=== PATIENT | female | born 1980 | race Caucasian/White ===

== ENCOUNTER 2019-08-18 11:31 | Emergency (ER) | payer BC, OTHER ==
[2019-08-18] MEDS ORDERED: dexAMETHasone 10 MG/ML VIAL ONE (11:59)
[2019-08-18] MEDS ORDERED: METOCLOPRAMIDE 10 MG/2mL INJ ONE (11:59)
[2019-08-18] MEDS ORDERED: NA CHLORIDE 0.9% 1,000 ML ONE (11:59)
[2019-08-18] MEDS ORDERED: DIPHENHYDRAMINE 50 MG/ML VIAL ONE (11:59)
--- NOTE | 2019-08-18 12:10 | RAD REPORT ---
EXAM DESCRIPTION: CT - Head Brain Wo Cont - 08/18/2019 12:01 pm CLINICAL HISTORY: HEADACHE Headache, drowsiness COMPARISON: No comparisons TECHNIQUE: All CT scans are performed using dose optimization technique as appropriate and may inclu de automated exposure control or mA/KV adjustment according to patient size. FINDINGS: No intracranial hemorrhage, hydrocephalus or extra-axial fluid collection.No areas of brai n edema or evidence of midline shift. The paranasal sinuses and mastoids are clear. The calvarium is intact. IMPRESSION: No acute intracranial abnormality.
[2019-08-18] MEDS ORDERED: KETOROLAC 30 MG/ML INJ ONE (12:22)
--- NOTE | 2019-08-18 12:54 | EDPHYS ---
Physician Documentation [facility] Name: Fanny Null Age: 39 yrs Sex: Female : 1980 Arrival Date: 08/18/2019 Time: 11:35 Bed 8 Private MD: Roni Menendez V ED Physician Arturo Larry HPI: 08/18 12:00 This 39 yrs old Female presents to ER via Ambulatory with complaints of kb Headache, High Blood Pressure. 12:00 The patient complains of pain to the forehead. The patient describes the headache as kb constant, throbbing. Onset: The symptoms/episode began/occurred this morning. Associated signs and symptoms: Pertinent positives: nausea. Severity of symptoms: At its worst the pain was moderate, severe, in the emergency department the pain is unchanged. Headache History: The patient has had previous headaches and this one is different than previous episodes. The symptoms are alleviated by nothing. the symptoms are aggravated by nothing. The patient has experienced a previous episode. The patient has been recently seen by a physician: the patient's primary care provider, earlier today, with similar presenting complaints. Pt reports she has had a headache since this morning, went to Dr Menendez and was prescribed some medications, but was told to come here for a CT scan. States she had a headache just like this a couple of weeks ago and started checking her BP at that time. States it has been high all week. Historical: - Allergies: 11:41 PENICILLINS; hb - Immunization history:: Adult Immunizations up to date. - Social history:: Smoking status: Patient/guardian denies using tobacco. - Ebola Screening: : Patient denies exposure to infectious person Patient denies travel to an Ebola-affected area in the 21 days before illness onset. ROS: 11:53 Constitutional: Negative for fever, chills, and weight loss, Eyes: Negative for injury, kb pain, redness, and discharge, ENT: Negative for injury, pain, and discharge, Neck: Negative for injury, pain, and swelling, Cardiovascular: Negative for chest pain, palpitations, and edema, Respiratory: Negative for shortness of breath, cough, wheezing, and pleuritic chest pain, Back: Negative for injury and pain, : Negative for injury, bleeding, discharge, and swelling, MS/Extremity: Negative for injury and deformity, Skin: Negative for injury, rash, and discoloration. 12:00 Abdomen/GI: Positive for nausea. kb 12:00 Neuro: Positive for headache. Exam: 11:52 Head/Face: Normocephalic, atraumatic. Eyes: Pupils equal round and reactive to light, kb extra-ocular motions intact. Lids and lashes normal. Conjunctiva and sclera are non-icteric and not injected. Cornea within normal limits. Periorbital areas with no swelling, redness, or edema. ENT: Nares patent. No nasal discharge, no septal abnormalities noted. Tympanic membranes are normal and external auditory canals are clear. Oropharynx with no redness, swelling, or masses, exudates, or evidence of obstruction, uvula midline. Mucous membranes moist. Neck: Trachea midline, no thyromegaly or masses palpated, and no cervical lymphadenopathy. Supple, full range of motion without nuchal rigidity, or vertebral point tenderness. No Meningismus. Chest/axilla: Normal chest wall appearance and motion. Nontender with no deformity. No lesions are appreciated. Cardiovascular: Regular rate and rhythm with a normal S1 and S2. No gallops, murmurs, or rubs. Normal PMI, no JVD. No pulse deficits. Respiratory: Lungs have equal breath sounds bilaterally, clear to auscultation and percussion. No rales, rhonchi or wheezes noted. No increased work of breathing, no retractions or nasal flaring. Abdomen/GI: Soft, non-tender, with normal bowel sounds. No distension or tympany. No guarding or rebound. No evidence of tenderness throughout. Back: No spinal tenderness. No costovertebral tenderness. Full range of motion. Skin: Warm, dry with normal turgor. Normal color with no rashes, no lesions, and no evidence of cellulitis. MS/ Extremity: Pulses equal, no cyanosis. Neurovascular intact. Full, normal range of motion. Neuro: Awake and alert, GCS 15, oriented to person, place, time, and situation. Cranial nerves II-XII grossly intact. Motor strength 5/5 in all extremities. Sensory grossly intact. Cerebellar exam normal. Normal gait. 11:52 Constitutional: The patient appears alert, awake, uncomfortable. Vital Signs: 11:41 BP 140 / 108; Pulse 88; Resp 16; Temp 97.9; Pulse Ox 100% on R/A; Pain 8/10; hb [place] Coma Score: 12:52 Eye Response: spontaneous(4). Verbal Response: oriented(5). Motor Response: obeys kb commands(6). Total: 15. MDM: 11:43 Patient medically screened. kb 11:52 Data reviewed: vital signs, nurses notes. Data interpreted: Pulse oximetry: on room air kb is 100 %. Interpretation: normal. 12:52 Counseling: I had a detailed discussion with the patient and/or guardian regarding: the kb historical points, exam findings, and any diagnostic results supporting the discharge/admit diagnosis, radiology results, the need for outpatient follow up, a family practitioner, to return to the emergency department if symptoms worsen or persist or if there are any questions or concerns that arise at home. 08/18 11:48 Order name: CT Head Brain wo Cont; Complete Time: 12:15 kb 08/18 11:50 Order name: IV Start; Complete Time: 11:56 kb Administered Medications: 11:54 Not Given (Physician Discretion): Benadryl 12.5 mg IVP once kb 12:06 Drug: NS 0.9% 1000 ml Route: IV; Rate: 1000 ml; Site: right antecubital; ss 13:13 Follow up: IV Status: Completed infusion; IV Intake: 1000ml ss 12:08 Drug: Benadryl 12.5 mg Route: IVP; Site: right antecubital; ss 13:12 Follow up: Response: No adverse reaction; Marked relief of symptoms; Pain is decreased ss 12:13 Drug: Decadron - Dexamethasone 10 mg Route: IVP; Site: right antecubital; ss 13:13 Follow up: Response: No adverse reaction; Marked relief of symptoms; Pain is decreased ss 12:15 Drug: Reglan 10 mg Route: IVP; Site: right antecubital; ss 13:13 Follow up: Response: No adverse reaction; Marked relief of symptoms; Pain is decreased ss 12:26 Drug: TORadol - Ketorolac 15 mg Route: IVP; Site: right antecubital; ss 13:13 Follow up: Response: No adverse reaction; Pain is decreased ss Disposition: 13:27 Co-signature as Attending Physician, Arturo Larry MD. rn Disposition: 08/18/19 12:53 Discharged to Home. Impression: Headache. - Condition is Stable. - Discharge Instructions: General Headache Without Cause, [id number]. - Medication Reconciliation Form, Thank You Letter, Antibiotic Education, Prescription Opioid Use form. - Follow up: Emergency Department; When: As needed; Reason: Worsening of condition. Follow up: Private Physician; When: 2 - 3 days; Reason: Recheck today's complaints, Continuance of care, Re-evaluation by your physician. Signatures: Dispatcher [employer] EDMS Torie Worthington, PARKING LOT SIGNALER-C PARKING LOT SIGNALER-CkArturo Salvador MD MD rn Paige Farias RN RN ss Shalonda Cordova RN RN Corrections: (The following items were deleted from the chart) 12:00 11:53 Constitutional: Negative for fever, chills, and weight loss, kb 13:13 12:53 08/18/2019 12:53 Discharged to Home. Impression: Headache. Condition is Stable. ss Forms are Medication Reconciliation Form, Thank You Letter, Antibiotic Education, Prescription Opioid Use. Follow up: Emergency Department; When: As needed; Reason: Worsening of condition. Follow up: Private Physician; When: 2 - 3 days; Reason: Recheck today's complaints, Continuance of care, Re-evaluation by your physician. kb
--- NOTE | 2019-08-18 12:54 | ER ---
Nurse's Notes [facility] Name: Fanny Null Age: 39 yrs Sex: Female : 1980 Arrival Date: 08/18/2019 Time: 11:35 Bed 8 Private MD: Roni Menendez V Diagnosis: Headache Presentation: 08/18 11:36 Presenting complaint: Headache, nausea, and chills since this morning. Seen by Dr. maría elena Menendez for same s/s this morning, given prescription for bisoprolol/HCTZ and Fioricet. Transition of care: patient was not received from another setting of care. Onset of symptoms was August 18, 2019. Risk Assessment: Do you want to hurt yourself or someone else? Patient reports no desire to harm self or others. Initial Sepsis Screen: Does the patient meet any 2 criteria? No. Patient's initial sepsis screen is negative. Does the patient have a suspected source of infection? No. Patient's initial sepsis screen is negative. Care prior to arrival: None. 11:36 Method Of Arrival: Ambulatory 11:36 Acuity: ELIE 3 hb Historical: - Allergies: 11:41 PENICILLINS; hb - Immunization history:: Adult Immunizations up to date. - Social history:: Smoking status: Patient/guardian denies using tobacco. - Ebola Screening: : Patient denies exposure to infectious person Patient denies travel to an Ebola-affected area in the 21 days before illness onset. Screenin:15 Abuse screen: Denies threats or abuse. Denies injuries from another. Nutritional ss screening: No deficits noted. Tuberculosis screening: Never had TB. Fall Risk None identified. Assessment: 11:51 Reassessment: orders to hold medication until CT scan results are back for patient sg safety from XIANG Rodriguez EQUINE MANAGER, pt stated understanding. 11:55 Reassessment: Patient appears in no apparent distress at this time. orders Toradol to sg hold until CT scan is complete and results are reported. 12:15 General: Appears uncomfortable, Behavior is calm, cooperative, quiet, Denies fever, ss feeling ill, fatigue, chills. Pain: Complains of pain in forehead Pain currently is 8 out of 10 on a pain scale. Quality of pain is described as aching, tender, Pain began "this morning" Is continuous. Neuro: Level of Consciousness is awake, alert, obeys commands, Oriented to person, place, time, situation. Cardiovascular: Capillary refill < 3 seconds is brisk in bilateral fingers. Respiratory: Airway is patent Respiratory effort is even, unlabored, Respiratory pattern is regular, symmetrical. GI: Patient currently denies abdominal pain, diarrhea, nausea, vomiting. : No signs and/or symptoms were reported regarding the genitourinary system. EENT: Nares are clear Oral mucosa is moist. Derm: Skin is intact, is healthy with good turgor, Skin is dry, Skin is pink, warm \\T\\ dry. normal. Musculoskeletal: Circulation, motion, and sensation intact. Range of motion: intact in all extremities. 12:59 Reassessment: Patient appears in no apparent distress at this time. discharge delayed ss due to awaiting IVF to finish infusing. 13:12 Reassessment: Patient appears in no apparent distress at this time. Patient and/or ss family updated on plan of care and expected duration. Pain level reassessed. Patient is alert, oriented x 3, equal unlabored respirations, skin warm/dry/pink. Patient states feeling better. Patient states symptoms have improved. Pain: Pain currently is 3 out of 10 on a pain scale. Vital Signs: 11:41 BP 140 / 108; Pulse 88; Resp 16; Temp 97.9; Pulse Ox 100% on R/A; Pain 8/10; hb [place] Coma Score: 12:52 Eye Response: spontaneous(4). Verbal Response: oriented(5). Motor Response: obeys kb commands(6). Total: 15. ED Course: 11:35 Patient arrived in ED. mr 11:36 Roni Menendez MD is Private Physician. mr 11:40 Triage completed. hb 11:41 Arm band placed on. hb 11:43 [facility] Worthington [facility]-C [facility]. kb 11:43 Arturo Larry MD is Attending Physician. kb 11:55 Inserted saline lock: 22 gauge in right antecubital area, using aseptic technique. jb1 12:00 Paige Farias, MARYLOU is Primary Nurse. ss 12:01 CT Head Brain wo Cont In Process Unspecified. EDMS 12:15 Patient has correct armband on for positive identification. Bed in low position. Call ss light in reach. Side rails up X 1. 13:11 No provider procedures requiring assistance completed. IV discontinued, intact, ss bleeding controlled, No redness/swelling at site. Pressure dressing applied. Administered Medications: 11:54 Not Given (Physician Discretion): Benadryl 12.5 mg IVP once kb 12:06 Drug: NS 0.9% 1000 ml Route: IV; Rate: 1000 ml; Site: right antecubital; ss 13:13 Follow up: IV Status: Completed infusion; IV Intake: 1000ml ss 12:08 Drug: Benadryl 12.5 mg Route: IVP; Site: right antecubital; ss 13:12 Follow up: Response: No adverse reaction; Marked relief of symptoms; Pain is decreased ss 12:13 Drug: Decadron - Dexamethasone 10 mg Route: IVP; Site: right antecubital; ss 13:13 Follow up: Response: No adverse reaction; Marked relief of symptoms; Pain is decreased ss 12:15 Drug: Reglan 10 mg Route: IVP; Site: right antecubital; ss 13:13 Follow up: Response: No adverse reaction; Marked relief of symptoms; Pain is decreased ss 12:26 Drug: TORadol - Ketorolac 15 mg Route: IVP; Site: right antecubital; ss 13:13 Follow up: Response: No adverse reaction; Pain is decreased ss Intake: 13:13 IV: 1000ml; Total: 1000ml. ss Outcome: 12:53 Discharge ordered by . kb 13:11 Discharged to home ambulatory, with family. ss 13:11 Condition: good 13:11 Discharge instructions given to patient, Instructed on discharge instructions, follow up and referral plans. Demonstrated understanding of instructions, follow-up care. 13:13 Patient left the ED. ss Signatures: Dispatcher [employer] EDNM Kevin Nash Kristin, EQUINE MANAGER-C EQUINE MANAGER-CkCaden Reza RN RN MiramontesJoan santiago mr Paige Farias RN RN ss Shalonda Cordova RN RN hb
[2019-08-18 13:21] VITALS: BP 140/108; TEMP 97.9; O2SAT 100
== END 2019-08-18 13:13 | disposition home or self-care (01) ==
LOC: ER 11:31
DX: R51 Headache (principal); Z88.0 Allergy status to penicillin
CPT/HCPCS: 96361; 70450; 96375; 96374; 99283; J2765; J1100; J7030

== ENCOUNTER 2021-01-09 13:33 | Emergency (ER) | payer OTHER, SELFPAY ==
[2021-01-09] MEDS ORDERED: TETANUS & DIPHTHERIA TOX,ADULT 0.5 ML VIAL ONE (14:23)
[2021-01-09 14:38] LABS: Absolute Lymphocytes (CBC) 1.3 K/uL (0.7-4.9); Hematocrit 40.1 % (36.0-45.0); Lymphocytes % 32.9 % (15.3-44.8); MPV 7.1 fL (7.6-11.3); RBC Red Blood Cell Count 4.39 M/uL (3.86-4.86)
[2021-01-09 14:57] LABS: ALT/SGPT 82 U/L (12-78); AST/SGOT 48 U/L (15-37); Albumin 3.9 g/dL (3.4-5.0); Alkaline Phosphatase 55 U/L (45-117); BUN Blood Urea Nitrogen 7 mg/dL (7-18); Bicarbonate 26 mmol/L (21-32); Bilirubin Total 0.3 mg/dL (0.2-1.0); Glucose Level 117 mg/dL (74-106); Potassium 4.1 mmol/L (3.5-5.1); Protein, Total 7.5 g/dL (6.4-8.2); Sodium Level 137 mmol/L (136-145)
--- NOTE | 2021-01-09 16:35 | EDPHYS ---
Physician Documentation [facility] Name: Fanny Null Age: 40 yrs Sex: Female : 1980 Arrival Date: 01/09/2021 Time: 13:36 Bed 17 Private MD: ED Physician Rufino Burk HPI: 01/09 13:58 This 40 yrs old Female presents to ER via Ambulatory with complaints of pm1 Insect Bite. 13:58 The patient presents with an abscess of the left calf. Description: raised. Onset: The pm1 symptoms/episode began/occurred 4 day(s) ago. Possible cause(s): insect sting, possible from shaving her legs with an old razor. Associated signs and symptoms: Pertinent positives: fever, Pertinent negatives: drainage. Modifying factors: the symptoms are aggravated by touching. Severity of symptoms: in the emergency department the symptoms are actually worse. The patient has not experienced similar symptoms in the past. Historical: - Allergies: 13:47 PENICILLINS; ll1 - PMHx: 13:47 None; ll1 - PSHx: 13:47 Tubal ligation; ll1 - Immunization history:: Flu vaccine is not up to date. - Social history:: Smoking status: Patient denies any tobacco usage or history of. ROS: 13:58 Cardiovascular: Negative for chest pain, palpitations, and edema, Respiratory: Negative pm1 for shortness of breath, cough, wheezing, and pleuritic chest pain, MS/Extremity: Negative for injury and deformity. 13:58 Neuro: Negative for headache, weakness, numbness, tingling, and seizure. 13:58 Constitutional: Positive for fever, Negative for 13:58 Skin: Positive for abscess, of the left calf. Exam: 13:58 Constitutional: This is a well developed, well nourished patient who is awake, alert, pm1 and in no acute distress. Head/Face: Normocephalic, atraumatic. 13:58 MS/ Extremity: Pulses equal, no cyanosis. Neurovascular intact. Full, normal range of motion. 13:58 Chest/axilla: Exam negative for acute changes, Inspection: normal, Palpation: is normal. 13:58 Cardiovascular: Exam negative for acute changes, Rate: normal, Rhythm: regular, Pulses: no pulse deficits are appreciated. 13:58 Respiratory: Exam negative for acute changes, respiratory distress, shortness of breath. 13:58 Skin: Appearance: normal except for affected area, abscess, that is small, of the left calf just below knee, no drainage, fluctuance, pointing, or surrounding cellulitis. 13:58 Neuro: Exam negative for acute changes, Orientation: is normal, Motor: is normal, moves all fours. Vital Signs: 13:44 BP 127 / 87; Pulse 115; Resp 16; Temp 98.0; Pulse Ox 99% ; Weight 86.18 kg; Height 5 ll1 ft. 2 in. (157.48 cm); Pain 4/10; 14:03 BP 121 / 83; Pulse 110; Resp 16; Pulse Ox 100% on R/A; vg1 16:00 BP 113 / 72; Pulse 100; Resp 18; Pulse Ox 98% on R/A; vg1 13:44 Body Mass Index 34.75 (86.18 kg, 157.48 cm) ll1 MDM: 13:50 Patient medically screened. pm1 15:43 ED course: Needle aspiration without any drainage or purulence. No I\T\D necessary. pm1 16:12 Data reviewed: vital signs. Data interpreted: Pulse oximetry: on room air is 98 %. pm1 Interpretation: normal. 16:13 Counseling: I had a detailed discussion with the patient and/or guardian regarding: the pm1 historical points, exam findings, and any diagnostic results supporting the discharge/admit diagnosis, lab results, the need for outpatient follow up, to return to the emergency department if symptoms worsen or persist or if there are any questions or concerns that arise at home. 01/09 13:57 Order name: CBC with Diff; Complete Time: 14:58 pm1 01/09 13:57 Order name: CMP; Complete Time: 15:02 pm1 01/09 13:57 Order name: Procalcitonin; Complete Time: 16:01 pm1 01/09 13:57 Order name: Lactate; Complete Time: 14:58 pm1 01/09 13:57 Order name: IV Saline Lock; Complete Time: 14:23 pm1 Administered Medications: 14:19 Drug: Tetanus-Diphtheria Toxoid Adult 0.5 ml {Psychologist [employer]: [employer]. Exp: sr5 03/03/2022. Lot #: [id number]. } Route: IM; Site: right deltoid; 16:14 Follow up: Response: No adverse reaction vg1 16:43 Drug: Bactrim (160 mg-800 mg (DS) 1 tablet Route: PO; vg1 18:23 Follow up: Response: No adverse reaction vg1 16:57 Drug: Doxycycline 100 mg Route: IV; Rate: calculated rate; Site: right antecubital; vg1 18:23 Follow up: IV Status: Completed infusion; IV Intake: 100ml vg1 Disposition: 01/10 08:03 Co-signature as Attending Physician, Rufino Burk MD I agree with the assessment and tammy plan of care. Disposition: 01/09/21 16:34 Discharged to Home. Impression: Cutaneous abscess of left lower limb. - Condition is Stable. - Discharge Instructions: Skin Abscess. - Prescriptions for Doxycycline Hyclate 100 mg Oral Tablet - take 1 tablet by ORAL route every 12 hours; 20 tablet. Bactrim DS 800- 160 mg Oral Tablet - take 1 tablet by ORAL route every 12 hours for 10 days; 20 tablet. - Medication Reconciliation Form, Thank You Letter, Antibiotic Education, Prescription Opioid Use form. - Follow up: Emergency Department; When: As needed; Reason: Worsening of condition. Follow up: Private Physician; When: 2 - 3 days; Reason: Recheck today's complaints, Continuance of care, Re-evaluation by your physician. - Problem is new. - Symptoms have improved. Signatures: Dispatcher [employer] Rufino Schultz MD MD cha Marinas, Patrick, PUBLIC OPINION SURVEY TAKER PUBLIC OPINION SURVEY TAKER pm1 Dwain Shepard RN RN sr5 Reema Barajas RN RN vg1 Prema Van RN RN ll1 Corrections: (The following items were deleted from the chart) 01/09 18:24 16:34 01/09/2021 16:34 Discharged to Home. Impression: Cutaneous abscess of left lower vg1 limb. Condition is Stable. Forms are Medication Reconciliation Form, Thank You Letter, Antibiotic Education, Prescription Opioid Use. Follow up: Emergency Department; When: As needed; Reason: Worsening of condition. Follow up: Private Physician; When: 2 - 3 days; Reason: Recheck today's complaints, Continuance of care, Re-evaluation by your physician. Problem is new. Symptoms have improved. pm1
--- NOTE | 2021-01-09 16:35 | ER ---
Nurse's Notes [facility] Name: Fanny Null Age: 40 yrs Sex: Female : 1980 Arrival Date: 01/09/2021 Time: 13:36 Bed 17 Private MD: Diagnosis: Cutaneous abscess of left lower limb Presentation: 01/09 13:44 Chief complaint: Patient states: Abscess to L posterior leg since Friday, getting ll1 worse. Feels weak and fatigue. Fever 100.3 at home. Red spots started popping up on her arms and legs today, so she came to get checked. Coronavirus screen: Client denies travel out of the [place] in the last 14 days. fatigue, fever, nausea, Client presents with at least one sign or symptom that may indicate coronavirus-19. Standard/surgical mask placed on the client. Ebola Screen: Patient denies travel to an Ebola-affected area in the 21 days before illness onset. Initial Sepsis Screen: Does the patient meet any 2 criteria? HR > 90 bpm. No. Patient's initial sepsis screen is negative. Does the patient have a suspected source of infection? Yes: Skin breakdown/wound. Risk Assessment: Do you want to hurt yourself or someone else? Patient reports no desire to harm self or others. Onset of symptoms was January 05, 2021. 13:44 Method Of Arrival: Ambulatory ll1 13:44 Acuity: ELIE 3 ll1 Historical: - Allergies: 13:47 PENICILLINS; ll1 - PMHx: 13:47 None; ll1 - PSHx: 13:47 Tubal ligation; ll1 - Immunization history:: Flu vaccine is not up to date. - Social history:: Smoking status: Patient denies any tobacco usage or history of. Screenin:03 Abuse screen: Denies threats or abuse. Nutritional screening: No deficits noted. vg1 Tuberculosis screening: No symptoms or risk factors identified. Fall Risk No fall in past 12 months (0 pts). No secondary diagnosis (0 pts). IV access (20 points). Ambulatory Aid- None/Bed Rest/Nurse Assist (0 pts). Gait- Normal/Bed Rest/Wheelchair (0 pts) Mental Status- Oriented to own ability (0 pts). Total Vásquez Fall Scale indicates No Risk (0-24 pts). Assessment: 13:58 General: Appears in no apparent distress. comfortable, Behavior is calm, cooperative. vg1 Pain: Complains of pain in posterior side of L knee Pain currently is 4 out of 10 on a pain scale. Pain began 2-3 days ago. 14:00 Neuro: Level of Consciousness is awake, alert, obeys commands, Oriented to person, vg1 place, time, situation. Cardiovascular: Patient's skin is warm and dry. Respiratory: Airway is patent Respiratory effort is even, unlabored. GI: No signs and/or symptoms were reported involving the gastrointestinal system. : No signs and/or symptoms were reported regarding the genitourinary system. EENT: No signs and/or symptoms were reported regarding the EENT system. Derm: Skin abscess on posterior side of Left knee Skin is clammy, diaphoretic, Skin is red, ,purlpe. Musculoskeletal: Circulation, motion, and sensation intact. 16:00 Reassessment: Patient appears in no apparent distress at this time. No changes from vg1 previously documented assessment. Patient and/or family updated on plan of care and expected duration. Pain level reassessed. Patient is alert, oriented x 3, equal unlabored respirations, skin warm/dry/pink. 16:43 Reassessment: Patient up for d/c. Currently waiting for a medication from pharmacy. vg1 18:23 Reassessment: Patient appears in no apparent distress at this time. Patient and/or vg1 family updated on plan of care and expected duration. Pain level reassessed. Patient is alert, oriented x 3, equal unlabored respirations, skin warm/dry/pink. Vital Signs: 13:44 BP 127 / 87; Pulse 115; Resp 16; Temp 98.0; Pulse Ox 99% ; Weight 86.18 kg; Height 5 ll1 ft. 2 in. (157.48 cm); Pain 4/10; 14:03 BP 121 / 83; Pulse 110; Resp 16; Pulse Ox 100% on R/A; vg1 16:00 BP 113 / 72; Pulse 100; Resp 18; Pulse Ox 98% on R/A; vg1 13:44 Body Mass Index 34.75 (86.18 kg, 157.48 cm) ll1 ED Course: 13:36 Patient arrived in ED. as 13:46 Triage completed. ll1 13:47 Arm band placed on Patient placed in an exam room, on a stretcher. ll1 13:48 Reema Barajas RN is Primary Nurse. vg1 13:49 Angelo Martinez NP is PHCP. pm1 13:49 Rufino Burk MD is Attending Physician. pm1 14:03 Patient has correct armband on for positive identification. Placed in gown. Bed in low vg1 position. Call light in reach. Side rails up X 1. 14:24 Initial lab(s) drawn, by me, sent to lab. Inserted saline lock: 20 gauge in right sr5 antecubital area, using aseptic technique. Blood collected. 18:23 No provider procedures requiring assistance completed. IV discontinued, intact, vg1 bleeding controlled, No redness/swelling at site. Pressure dressing applied. Administered Medications: 14:19 Drug: Tetanus-Diphtheria Toxoid Adult 0.5 ml {[employer] Instructor: [employer]. Exp: sr5 03/03/2022. Lot #: [id number]. } Route: IM; Site: right deltoid; 16:14 Follow up: Response: No adverse reaction vg1 16:43 Drug: Bactrim (160 mg-800 mg (DS) 1 tablet Route: PO; vg1 18:23 Follow up: Response: No adverse reaction vg1 16:57 Drug: Doxycycline 100 mg Route: IV; Rate: calculated rate; Site: right antecubital; vg1 18:23 Follow up: IV Status: Completed infusion; IV Intake: 100ml vg1 Intake: 18:23 IV: 100ml; Total: 100ml. vg1 Outcome: 16:34 Discharge ordered by . pm1 18:23 Discharged to home ambulatory. vg1 18:23 Condition: stable 18:23 Discharge instructions given to patient, Instructed on discharge instructions, follow up and referral plans. Demonstrated understanding of instructions, follow-up care, medications, Prescriptions given X 2. 18:24 Patient left the ED. vg1 Signatures: Marybeth Figueroa as Angelo Martinez NP GEMOLOGIST pm1 Dwain Sheaprd RN RN sr5 Reema Barajas RN RN vg1 Prema Van RN RN ll1 Corrections: (The following items were deleted from the chart) 14:03 13:58 Pain: Complains of pain in posterior side of L knee Pain currently is 4 out of 10 vg1 on a pain scale. Pain began 2-3 days ago. vg1
[2021-01-09] MEDS ORDERED: SMZ./TMP. 800/160 MG TABLET ONE (16:59)
[2021-01-09] MEDS ORDERED: DOXYCYCLINE 100 MG in NA CHLORIDE 0.9% 100 ML IVPB ONE (17:00)
[2021-01-09 18:44] VITALS: TEMP 98
[2021-01-09 18:47] VITALS: BP 113/72; O2SAT 98
== END 2021-01-09 18:24 | disposition home or self-care (01) ==
LOC: ER 13:33
DX: L02.416 Cutaneous abscess of left lower limb (principal); Z23 Encounter for immunization; Z88.0 Allergy status to penicillin
CPT/HCPCS: 36415; 80053; 83605; 84145; 85025; 90471; 90714; 96365; 99284